=== PATIENT | male | born 1935 | race Caucasian/White ===

== ENCOUNTER 2021-05-11 11:28 | Observation (INO) ==
[2021-05-11] MEDS ORDERED: Magnesium Hydroxide LIQ 30 ML UDC PO ONE (15:02)
[2021-05-11] MEDS: Nicotine GUM 2MG FRUIT FLAVOR PO PRN (18:47)
[2021-05-11] MEDS ORDERED: Al Hydrox/Mg Hydrox/Simet LIQ 30 ML UDC PO ONE (23:35)
[2021-05-12 02:41] LABS: Hematocrit 33 % (42-52); Hemoglobin 10.7 g/dL (14.0-18.0); Mean Corpuscular HGB Conc 33 g/dL (31-36); Mean Corpuscular Hemoglobin 36 pg (27-31); Mean Corpuscular Volume 108 fL (80-94); Mean Platelet Volume 7.9 fL (7.4-10.4); Platelet Count 552 10^3/uL (150-450); Red Blood Count 3.02 10^6 /uL (4.18-5.48); Red Cell Distribution Width 18 % (10-15); White Blood Count 24.4 10^3/uL (3.5-10.8)
[2021-05-12 02:56] LABS: ABS Basophils 0.1 10^3/ul (0-0.2); ABS Lymphocytes 0.7 10^3/ul (1.0-4.8); ABS Monocytes 1.6 10^3/ul (0-0.8); Eosinophil % 0.1 %; Lymphocyte % 2.7 %
[2021-05-12 02:57] LABS: ALT 8 U/L (7-52); AST 13 U/L (13-39); Albumin 3.7 g/dL (3.2-5.2); Albumin/Globulin Ratio 1.6 (1-3); Alkaline Phosphatase 131 U/L (35-149); Anion Gap 9 mmol/L (2-11); Anisocytosis 1+; Blood Urea Nitrogen 16 mg/dL (6-24); CO2 Carbon Dioxide 24 mmol/L (22-32); Calcium 8.5 mg/dL (8.6-10.3); Chloride 106 mmol/L (101-111); EGFR African American 74.3 (>60); EGFR Non-African American 61.4 (>60); Globulin 2.3 g/dL (2-4); Glucose 118 mg/dL (70-100); Lipase 13 U/L (11.0-82.0); Macrocytosis 1+; Potassium 3.5 mmol/L (3.5-5.0); Sodium 139 mmol/L (135-145)
[2021-05-12] MEDS ORDERED: Iohexol 300 (CONTRAST) 10 ML SDV IV ONE (03:29)
[2021-05-12 05:48] LABS: C Reactive Protein 21.32 mg/L (<8.01)
[2021-05-12 06:34] LABS: Ferritin 303.7 ng/mL (24-336)
[2021-05-12 06:36] LABS: Folate 6.51 ng/mL (5.90-24.80)
[2021-05-12 06:37] LABS: Vitamin B12 296 pg/mL (180-914)
[2021-05-12 06:49] LABS: % Iron Saturation 24 % (15-55); Alcohol, S < 13 mg/dL (<10); Iron 60 ug/dL (50-212); Total Iron Binding Capacity 251 mcg/dL (250-450); Transferrin 179 mg/dL (203-362); Unsaturated Iron Binding < 236 ug/dL
[2021-05-12 07:04] LABS: Vitamin D Total 25(OH) < 7.0 ng/mL (20-50)
[2021-05-12] MEDS: Heparin 5000 UNITS/ML 1 mL VIAL SUBCUT SCH ×2 (10:22→21:27)
[2021-05-12] MEDS ORDERED: Cholecalciferol (VIT D3) 1,000 unit TAB PO SCH (18:00)
[2021-05-13 07:06] LABS: Albumin 3.3 g/dL (3.2-5.2); Albumin/Globulin Ratio 1.5 (1-3); Calcium 8.4 mg/dL (8.6-10.3); EGFR African American 82.7 (>60); EGFR Non-African American 68.3 (>60); Globulin 2.2 g/dL (2-4); Potassium 3.4 mmol/L (3.5-5.0); Total Bilirubin 0.5 mg/dL (0.2-1.0); Total Protein 5.5 g/dL (6.4-8.9)
[2021-05-13 07:11] LABS: ABS Basophils 0.1 10^3/ul (0-0.2); ABS Eosinophils 0.1 10^3/ul (0-0.6); ABS Lymphocytes 1.7 10^3/ul (1.0-4.8); Eosinophil % 1.2 %; Hematocrit 29 % (42-52); Lymphocyte % 13.7 %; Mean Corpuscular HGB Conc 34 g/dL (31-36); Mean Corpuscular Hemoglobin 37 pg (27-31); Mean Corpuscular Volume 107 fL (80-94); Platelet Count 422 10^3/uL (150-450); Red Blood Count 2.73 10^6 /uL (4.18-5.48); Red Cell Distribution Width 17 % (10-15)
[2021-05-13] MEDS ORDERED: Potassium Chlor 20 meq TAB.ER PO ONE (07:30)
[2021-05-13 07:53] LABS: Magnesium 2.4 mg/dL (1.9-2.7)
[2021-05-13] MEDS: Heparin 5000 UNITS/ML 1 mL VIAL SUBCUT SCH (10:07)
[2021-05-13] MEDS ORDERED: Enoxaparin 40 MG/0.4 ML SYR SUBCUT SCH (20:00)
[2021-05-14 06:16] LABS: ABS Basophils 0.2 10^3/ul (0-0.2); ABS Eosinophils 0.1 10^3/ul (0-0.6); ABS Lymphocytes 1.3 10^3/ul (1.0-4.8); ABS Monocytes 0.7 10^3/ul (0-0.8); ABS Neutrophils 6.2 10^3/ul (1.5-7.7); Eosinophil % 1.6 %; Hematocrit 26 % (42-52); Hemoglobin 8.9 g/dL (14.0-18.0); Lymphocyte % 15.5 %; Mean Corpuscular HGB Conc 34 g/dL (31-36); Mean Corpuscular Hemoglobin 36 pg (27-31); Mean Corpuscular Volume 106 fL (80-94); Mean Platelet Volume 7.9 fL (7.4-10.4); Platelet Count 382 10^3/uL (150-450); Red Blood Count 2.46 10^6 /uL (4.18-5.48); Red Cell Distribution Width 18 % (10-15); White Blood Count 8.6 10^3/uL (3.5-10.8)
[2021-05-14 06:32] LABS: Calcium 7.8 mg/dL (8.6-10.3); EGFR African American 87.5 (>60); EGFR Non-African American 72.3 (>60); Magnesium 2.1 mg/dL (1.9-2.7); Potassium 4.1 mmol/L (3.5-5.0)
[2021-05-14] MEDS: Nicotine GUM 2MG FRUIT FLAVOR PO PRN (09:17)
[2021-05-14 11:46] VITALS: BP 118/58
== END 2021-05-14 16:00 | disposition home or self-care (01) ==
LOC: ED 11:28 → SSU 11:28
PROVIDERS: ADMIT Internal Medicine; ATTEND Hospitalist